=== PATIENT | female | born 1975 | race Caucasian/White ===

== ENCOUNTER 2016-09-26 18:31 | Emergency (ER) | payer BC ==
[~2016-09-26] VITALS: Ht 147.3 cm; Wt 107.9 kg
[~2016-09-26 18:31] MED LIST: AMBIEN10 MG PO; AMITRIPTYLINE150 MG PO; ATIVAN1 MG PO; AUGMENTIN875 MG PO; CELEXA20 MG PO; CELEXA40 MG PO; CLARITIN10 M3 PO; DEPO-PROVER150 MG/ML IM; DILAUDID2 MG PO; ELAVIL100 MG PO; ELAVIL150 MG PO; FIORICET,ESG1 TABLET PO; FLAGYL500 MG PO; HYDROCHLOROTHIA25 MG PO; HYDROCODON-ACE1 EAC7 PO; KEFLEX500 MG PO; KLONOPIN0.5 MG PO; KLONOPIN1 MG PO; LEXAPRO20 MG PO; LIALDA1.2 GM PO; LIPITOR20 MG PO; LISINOPRIL10 MG PO; LISINOPRIL20 MG PO; LOPRESSOR25 MG PO; METFORMIN HCL500 MG PO; METOPROLOL SUCC50 MG PO; MOTRIN800 MG PO; MULTIVITAMIN1 EAC2 PO; NEURONTIN100 MG PO; NEURONTIN300 MG PO; NORCO 5/3251 TABLET PO; NORCO 7.5/321 TABLET PO; PAXIL20 MG PO; PERCOCET 5/31 TABLET PO; PRAVACHOL10 MG PO; PREDNISONE10 MG PO; PRINIVIL20 MG PO; PULMICORT FLE180 MCG IH; ROBAXIN750 MG PO; TESSALON PERLE100 MG PO; TIZANIDINE HCL4 MG PO; TOFRANIL25 MG PO; TOPROL XL50 MG PO; TRAMADOL HCL50 MG PO; TYLENOL WITH C1 EACH PO; TYLENOL/CODE1 TABLET PO; VENTOLIN HFA18 GM IH; XANAX0.5 MG PO; XYZAL5 MG PO; ZANAFLEX4 M1 PO; ZOCOR5 MG PO; ZOFRAN ODT4 MG PO; ZOFRAN ODT8 MG PO; ZOFRAN4 MG PO; ZOLOFT50 M1 PO; ZOLOFT50 MG PO
[2016-09-26 19:15] LABS: HEMATOCRIT 37.8 % (36.0-46.0); MCH 29.2 PG (29.0-34.0); MCHC 33.6 G/DL (30.0-36.0); MCV 86.9 FL (83-99); MEAN PLAT.VOLUME 10.1 uM^3 (9.5-12.4); PLATELET COUNT 202 K/uL (156-360); RBC DIS.WIDTH-CV 13.7 % (11.8-14.6); RBC DIS.WIDTH-SD 41.9 % (39-53); RED BLOOD COUNT 4.35 M/uL (3.80-5.20); WHITE BLOOD COUNT 7.9 K/uL (4.1-10.2)
[2016-09-26 19:24] LABS: CHLORIDE 102 mEq/L (99-109); POTASSIUM 3.7 mEq/L (3.7-5.4); SODIUM 138 mEq/L (136-147)
[2016-09-26 19:26] LABS: GLUCOSE 160 mg/dL (70-99)
[2016-09-26 19:27] LABS: ANION GAP 11 MEQ/L (2-14)
[2016-09-26 19:30] LABS: GFR ESTIMATE (CALCULATED) > 59 mL/min/
[2016-09-26 19:31] LABS: UREA NITROGEN (BUN) 7 mg/dL (9-23)
[2016-09-26 23:00] LABS: EOSINOPHIL (%) 2.1 % (0-5); EOSINOPHIL COUNT 0.2 K/uL (0-0.3); IMMATURE GRANULOCYTE (%) 0.1 % (0.0-0.7); LYMPHOCYTE COUNT 2.9 K/uL (1.0-2.8); MONOCYTE (%) 7.8 % (3-12); MONOCYTE COUNT 0.6 K/uL (0-0.8); NEUTROPHIL (%) 52.1 % (45-76); NEUTROPHIL COUNT 3.9 K/uL (1.8-6.4)
[2016-09-26 23:07] LABS: TOTAL BILIRUBIN 0.4 mg/dL (0.0-1.0)
[2016-09-26 23:09] LABS: ALKALINE PHOSPHATASE 125 IU/L (3-129)
[2016-09-26 23:11] LABS: DIRECT BILIRUBIN 0.2 mg/dL (0.0-0.3)
[2016-09-27] LABS: INTERNAL CONTROL VALID? YES; MONOSPOT (MONONUCLEOSIS SEROL) NEGATIVE
[2016-09-27] MEDS ORDERED: MEDROL DOSEPAK4 MG PO (02:09)
[2016-09-27] MEDS ORDERED: ZITHROMAX500 MG PO (02:09)
[2016-09-27] MEDS ORDERED: PROVENTIL HFA6.7 GM IH (02:09)
[2016-09-27] MEDS ORDERED: TESSALON PERLE100 MG PO (02:09)
[2016-09-27] MEDS ORDERED: ROBITUSSIN AC,T10 ML PO (02:09)
[2016-09-27 02:24] VITALS: BP 169/92
== END 2016-09-27 02:25 | disposition home or self-care (01) ==
LOC: EME 18:31
DX: J06.9 Acute upper respiratory infection, unspecified (principal); J20.9 Acute bronchitis, unspecified; J45.909 Unspecified asthma, uncomplicated; E11.9 Type 2 diabetes mellitus without complications; I10 Essential (primary) hypertension; K21.9 Gastro-esophageal reflux disease without esophagitis; Z87.442 Personal history of urinary calculi
CPT/HCPCS: 71020; 71275; 80048; 80076; 85025; 85027; 86308; 87651 90; 94640; 99281; 99285; J7030; J7512

== ENCOUNTER 2016-10-27 21:11 | Emergency (ER) | payer BC ==
[~2016-10-27] VITALS: Ht 147.3 cm; Wt 105.0 kg
[~2016-10-27 21:11] MED LIST changes: +MEDROL DOSEPAK4 MG PO; +PROVENTIL HFA6.7 GM IH; +ROBITUSSIN AC,T10 ML PO; +ZITHROMAX500 MG PO
[2016-10-27 21:22] VITALS: BP 126/99
[2016-10-27 22:06] LABS: HEMATOCRIT 38.6 % (36.0-46.0); MCH 29.5 PG (29.0-34.0); MCHC 33.7 G/DL (30.0-36.0); MCV 87.5 FL (83-99); MEAN PLAT.VOLUME 10.5 uM^3 (9.5-12.4); PLATELET COUNT 194 K/uL (156-360); RBC DIS.WIDTH-CV 14.8 % (11.8-14.6); RBC DIS.WIDTH-SD 46.8 % (39-53); RED BLOOD COUNT 4.41 M/uL (3.80-5.20); WHITE BLOOD COUNT 5.7 K/uL (4.1-10.2)
[2016-10-27 22:15] LABS: D-DIMER ELISA 0.57 mg/L FEU (< 0.57)
[2016-10-27 22:33] LABS: TROP-I INTERPRETATION NEGATIVE; TROPONIN-I < 0.01 ng/mL (0.0-0.30)
[2016-10-27 22:39] LABS: CHLORIDE 103 mEq/L (99-109); POTASSIUM 3.9 mEq/L (3.7-5.4); SODIUM 136 mEq/L (136-147)
[2016-10-27 22:41] LABS: GLUCOSE 191 mg/dL (70-99)
[2016-10-27 22:42] LABS: ANION GAP 10 MEQ/L (2-14)
[2016-10-27 22:45] LABS: GFR ESTIMATE (CALCULATED) > 59 mL/min/; UREA NITROGEN (BUN) 6 mg/dL (9-23)
[2016-10-28 01:48] LABS: TROP-I INTERPRETATION NEGATIVE; TROPONIN-I 0.02 ng/mL (0.0-0.30)
[2016-10-28] MEDS ORDERED: LEVAQUIN750 MG PO (02:04)
[2016-10-28] MEDS ORDERED: PREDNISONE20 MG PO (02:04)
[2016-10-28] MEDS ORDERED: PROVENTIL HFA6.7 GM IH (02:04)
== END 2016-10-28 02:45 | disposition home or self-care (01) ==
LOC: EME 21:11
PROVIDERS: Emergency Medicine
DX: J20.9 Acute bronchitis, unspecified (principal); R07.9 Chest pain, unspecified; R42 Dizziness and giddiness; R00.0 Tachycardia, unspecified; J45.909 Unspecified asthma, uncomplicated; I10 Essential (primary) hypertension; Z79.52 Long term (current) use of systemic steroids
CPT/HCPCS: 71020; 71275; 80048; 84484; 85027; 85379; 93005; 99281; 99284; J7030

== ENCOUNTER 2017-02-11 12:20 | Emergency (ER) | payer BC ==
[~2017-02-11] VITALS: Ht 147.3 cm; Wt 105.9 kg
[~2017-02-11 12:20] MED LIST changes: +LEVAQUIN750 MG PO; +PREDNISONE20 MG PO
[2017-02-11] MEDS ORDERED: VALIUM5 MG PO (15:07)
[2017-02-11] MEDS ORDERED: INDOCIN25 MG PO (15:07)
[2017-02-11] MEDS ORDERED: ULTRACET1 TABLET PO (15:07)
[2017-02-11 15:26] VITALS: BP 118/98
== END 2017-02-11 15:37 | disposition home or self-care (01) ==
LOC: EME 12:20
DX: S46.811A Strain of other muscles, fascia and tendons at shoulder and upper arm level, right arm, initial encounter (principal); M75.81 Other shoulder lesions, right shoulder; M77.01 Medial epicondylitis, right elbow; X50.9XXA Other and unspecified overexertion or strenuous movements or postures, initial encounter; Y93.89 Activity, other specified; I10 Essential (primary) hypertension; E11.9 Type 2 diabetes mellitus without complications; Z87.442 Personal history of urinary calculi
CPT/HCPCS: 73030; 99281; 99284; J3010

== ENCOUNTER 2017-05-27 14:46 | Emergency (ER) | payer BC ==
[~2017-05-27] VITALS: Ht 149.9 cm; Wt 102.2 kg
[~2017-05-27 14:46] MED LIST changes: +INDOCIN25 MG PO; +ULTRACET1 TABLET PO; +VALIUM5 MG PO
[2017-05-27 16:38] LABS: ADD MIUA? YES; BILIRUBIN NEGATIVE; BLOOD TRACE; COLOR YELLOW ((YELLOW)); GLUCOSE (STRIP) NEGATIVE; KETONES NEGATIVE; LEUKOCYTES NEGATIVE; NITRITE NEGATIVE; PROTEIN (STRIP) NEGATIVE; SPECIFIC GRAVITY 1.019 (1.000-1.030); UROBILINOGEN 0.2 MG/DL (0.2-1.0)
[2017-05-27 16:39] LABS: HEMATOCRIT 37.8 % (36.0-46.0); MCH 30.1 PG (29.0-34.0); MCHC 33.6 G/DL (30.0-36.0); MCV 89.6 FL (83-99); MEAN PLAT.VOLUME 10.5 uM^3 (9.5-12.4); PLATELET COUNT 203 K/uL (156-360); RBC DIS.WIDTH-CV 13.7 % (11.8-14.6); RED BLOOD COUNT 4.22 M/uL (3.80-5.20); WHITE BLOOD COUNT 8.3 K/uL (4.1-10.2)
[2017-05-27 16:39] LABS: EPITHELIAL CELLS 1+ /HPF; MUCUS RARE /LPF; RED BLOOD CELLS 0-5 /HPF (0-5); WHITE BLOOD CELLS 0-5 /HPF (0-5)
[2017-05-27 16:40] LABS: BACTERIA 2+ /HPF
[2017-05-27 16:49] LABS: CHLORIDE 102 mEq/L (99-109); POTASSIUM 3.8 mEq/L (3.7-5.4); SODIUM 139 mEq/L (136-147)
[2017-05-27 16:51] LABS: GLUCOSE 150 mg/dL (70-99)
[2017-05-27 16:53] LABS: ANION GAP 16 MEQ/L (2-14)
[2017-05-27 16:55] LABS: GFR ESTIMATE (CALCULATED) > 59 mL/min/
[2017-05-27 16:56] LABS: UREA NITROGEN (BUN) 8 mg/dL (9-23)
[2017-05-27 17:05] LABS: QUANTITATIVE HCG < 4.0 MIU/ML
[2017-05-27] MEDS ORDERED: ZOFRAN ODT4 MG PO (17:49)
[2017-05-27] MEDS ORDERED: KEFLEX500 MG PO (17:49)
[2017-05-27] MEDS ORDERED: DIFLUCAN150 MG PO (17:59)
[2017-05-27 18:15] VITALS: BP 138/89
== END 2017-05-27 18:17 | disposition home or self-care (01) ==
LOC: EME 14:46
PROVIDERS: Nurse Practitioner Family
DX: N39.0 Urinary tract infection, site not specified (principal); E11.65 Type 2 diabetes mellitus with hyperglycemia; I10 Essential (primary) hypertension; J45.909 Unspecified asthma, uncomplicated; Z87.442 Personal history of urinary calculi; K50.90 Crohn's disease, unspecified, without complications
CPT/HCPCS: 74176; 80048; 81003; 84702; 85027; 99281; 99284; J3010; J7030

== ENCOUNTER 2017-09-09 12:49 | Emergency (ER) | payer BC ==
[~2017-09-09] VITALS: Ht 147.3 cm; Wt 162.7 kg
[~2017-09-09 12:49] MED LIST changes: +DIFLUCAN150 MG PO
[2017-09-09 13:31] LABS: HEMATOCRIT 41.2 % (36.0-46.0); HEMOGLOBIN 13.5 G/DL (11.9-15.5); MCH 29.5 PG (29.0-34.0); MCHC 32.8 G/DL (30.0-36.0); PLATELET COUNT 205 K/uL (156-360); RBC DIS.WIDTH-CV 14.2 % (11.8-14.6); RBC DIS.WIDTH-SD 46.6 % (39-53); RED BLOOD COUNT 4.58 M/uL (3.80-5.20); WHITE BLOOD COUNT 6.5 K/uL (4.1-10.2)
[2017-09-09 13:39] LABS: CHLORIDE 105 mEq/L (99-109); POTASSIUM 3.6 mEq/L (3.7-5.4); SODIUM 136 mEq/L (136-147)
[2017-09-09 13:41] LABS: GLUCOSE 201 mg/dL (70-99)
[2017-09-09 13:45] LABS: CREATININE 0.8 mg/dL (0.6-1.3); GFR ESTIMATE (CALCULATED) > 59 mL/min/
[2017-09-09 13:46] LABS: UREA NITROGEN (BUN) 8 mg/dL (9-23)
[2017-09-09] MEDS ORDERED: ROBITUSSIN AC,T10 ML PO (17:00)
[2017-09-09] MEDS ORDERED: PROVENTIL,2.5 MG/3 M IH (17:00)
[2017-09-09 17:14] VITALS: BP 145/97
== END 2017-09-09 17:15 | disposition home or self-care (01) ==
LOC: EME 12:49
PROVIDERS: Physician Assistant
DX: J20.9 Acute bronchitis, unspecified (principal); J45.909 Unspecified asthma, uncomplicated; E11.9 Type 2 diabetes mellitus without complications; I10 Essential (primary) hypertension; K50.90 Crohn's disease, unspecified, without complications; F43.10 Post-traumatic stress disorder, unspecified; Z88.1 Allergy status to other antibiotic agents; Z88.2 Allergy status to sulfonamides; Z88.8 Allergy status to other drugs, medicaments and biological substances
CPT/HCPCS: 71020; 80048; 82948; 85027; 94640; 99281; 99285; J1100

== ENCOUNTER 2017-10-16 12:08 | Inpatient (IN) | payer BC ==
[~2017-10-16] VITALS: Ht 148.6 cm; Wt 102.3 kg
[~2017-10-16 12:08] MED LIST changes: +PROVENTIL,2.5 MG/3 M IH
[2017-10-16 12:49] LABS: HEMATOCRIT 38.3 % (36.0-46.0); HEMOGLOBIN 12.9 G/DL (11.9-15.5); MCH 30.1 PG (29.0-34.0); MCHC 33.7 G/DL (30.0-36.0); MCV 89.3 FL (83-99); PLATELET COUNT 240 K/uL (156-360); RBC DIS.WIDTH-CV 13.9 % (11.8-14.6); RBC DIS.WIDTH-SD 44.9 % (39-53); RED BLOOD COUNT 4.29 M/uL (3.80-5.20); WHITE BLOOD COUNT 5.6 K/uL (4.1-10.2)
[2017-10-16 12:58] LABS: ALBUMIN 3.5 g/dL (3.2-4.8)
[2017-10-16 12:59] LABS: CHLORIDE 106 mEq/L (99-109); POTASSIUM 4.4 mEq/L (3.7-5.4); SODIUM 139 mEq/L (136-147)
[2017-10-16 13:01] LABS: GLUCOSE 184 mg/dL (70-99); TOTAL PROTEIN 7.3 g/dL (6.4-8.3)
[2017-10-16 13:03] LABS: TOTAL BILIRUBIN 0.5 mg/dL (0.0-1.0)
[2017-10-16 13:05] LABS: ALKALINE PHOSPHATASE 112 IU/L (3-129); CREATININE 0.8 mg/dL (0.6-1.3); GFR ESTIMATE (CALCULATED) > 59 mL/min/
[2017-10-16 13:06] LABS: AST (GOT) 39 IU/L (2-34); UREA NITROGEN (BUN) 8 mg/dL (9-23)
[2017-10-16 13:08] LABS: ALT (GPT) 34 IU/L (3-49); LIPASE 18 U/L (1.0-51.0)
[2017-10-16 13:15] LABS: QUANTITATIVE HCG < 4.0 MIU/ML
[2017-10-16 14:41] LABS: TROP-I INTERPRETATION NEGATIVE; TROPONIN-I < 0.01 ng/mL (0.0-0.30)
[2017-10-16 15:01] LABS: APPEARANCE CLOUDY ((CLEAR)); BILIRUBIN NEGATIVE; BLOOD NEGATIVE; COLOR YELLOW ((YELLOW)); GLUCOSE (STRIP) NEGATIVE; KETONES NEGATIVE; LEUKOCYTES NEGATIVE; NITRITE NEGATIVE; PROTEIN (STRIP) NEGATIVE; SPECIFIC GRAVITY 1.018 (1.000-1.030); UROBILINOGEN 0.2 MG/DL (0.2-1.0)
[2017-10-16 15:19] LABS: BACTERIA RARE /HPF; CALCIUM OXALATE CRYSTALS 2+ /HPF; EPITHELIAL CELLS 4+ /HPF; MUCUS 3+ /LPF; RED BLOOD CELLS 0-5 /HPF (0-5); UCUL ADDED? NO; WHITE BLOOD CELLS 0-5 /HPF (0-5)
[2017-10-16] MEDS ORDERED: NEURONTIN100 MG PO (17:47)
[2017-10-16] MEDS ORDERED: SINGULAIR10 MG PO (17:47)
[2017-10-16] MEDS ORDERED: COREG6.25 M1 PO (17:48)
[2017-10-16] MEDS ORDERED: LEVEMIR100 UNIT/2 SC (17:49)
[2017-10-16] MEDS ORDERED: PROAIR HFA8.5 GM IH (17:52)
[2017-10-16] MEDS ORDERED: ZESTRIL2.5 MG PO (17:53)
[2017-10-16] MEDS ORDERED: FLUOXETINE HCL20 MG PO (17:53)
[2017-10-16 22:58] VITALS: BP 122/79
[2017-10-17 04:36] VITALS: BP 120/74
[2017-10-17 07:05] VITALS: BP 129/62
[2017-10-17 07:07] LABS: CHLORIDE 107 MEQ/L (99-109); CREATININE 0.8 MG/DL (0.6-1.3); GFR ESTIMATE (CALCULATED) > 59 mL/min/; GLUCOSE 120 mg/dL (70-99); POTASSIUM 4.3 MEQ/L (3.7-5.4); SODIUM 139 MEQ/L (136-147); UREA NITROGEN (BUN) 7 mg/dL (9-23)
[2017-10-17 07:18] LABS: HEMATOCRIT 36.4 % (36.0-46.0); HEMOGLOBIN 11.9 G/DL (11.9-15.5); MCH 29.5 PG (29.0-34.0); MCHC 32.7 G/DL (30.0-36.0); MCV 90.3 FL (83-99); NRBC (%) 0.6 /100 WBC (0-0); RBC DIS.WIDTH-CV 14.1 % (11.8-14.6); RED BLOOD COUNT 4.03 M/uL (3.80-5.20); WHITE BLOOD COUNT 5.3 K/uL (4.1-10.2)
[2017-10-17 07:42] LABS: PLAT.SUFFICIENCY ADEQUATE; PLATELET COUNT 193 K/uL (156-360)
[2017-10-17 11:20] VITALS: BP 119/77
[2017-10-17 12:07] LABS: TROP-I INTERPRETATION NEGATIVE; TROPONIN-I < 0.01 ng/mL (0.0-0.30)
[2017-10-17 16:30] VITALS: BP 120/68
[2017-10-17 19:22] VITALS: BP 121/75
[2017-10-17 23:28] VITALS: BP 120/67
[2017-10-18 03:37] VITALS: BP 124/65
[2017-10-18 07:18] VITALS: BP 117/71
[2017-10-18] MEDS ORDERED: ENDOCET 5-3251 EACH PO (09:45)
[2017-10-18] MEDS ORDERED: ELIQUIS5 MG PO ×2 (10:11→10:13)
[2017-10-18 12:15] VITALS: BP 117/71
[2017-10-23 10:38] LABS: ACTIVATED PROTEIN C RESIST+ 4.7 ratio (>=2.1); DRVVT Mixing Study Interp Not Indicated (()); FACTOR VIII ACTIVITY+ 230 % (50-180); PROTEIN C FUNCTIONAL ACTIVITY+ 142 % (70-180); PTT-LA 37 sec (<=40); Protein S, Free 149 % normal (50-147); Thrombosis Consult Level Limited (()); dRVVT Screen 43 sec (<=45)
[2017-10-23 16:16] LABS: ANTITHROMBIN III ACTIVITY+ 80 % activi (80-120)
== END 2017-10-18 14:55 | disposition home or self-care (01) | DRG 176 ==
LOC: EME 12:08 → EDOF 19:44 → 2EAST 19:44 → ENRESERV 19:46 → 2EAST 21:29 → ENPENDDIS 10-18 → 2EAST 10-18 14:55
PROVIDERS: Hospitalist; Internal Medicine; Physician Assistant
DX: I26.99 Other pulmonary embolism without acute cor pulmonale (principal); E11.65 Type 2 diabetes mellitus with hyperglycemia; K50.90 Crohn's disease, unspecified, without complications; K76.89 Other specified diseases of liver; G89.29 Other chronic pain; I10 Essential (primary) hypertension; J45.909 Unspecified asthma, uncomplicated; K21.9 Gastro-esophageal reflux disease without esophagitis; E66.01 Morbid (severe) obesity due to excess calories; Z68.42 Body mass index [BMI] 45.0-49.9, adult; G43.909 Migraine, unspecified, not intractable, without status migrainosus; E78.5 Hyperlipidemia, unspecified; N80.9 Endometriosis, unspecified; F32.9 Major depressive disorder, single episode, unspecified; F43.10 Post-traumatic stress disorder, unspecified; Z80.1 Family history of malignant neoplasm of trachea, bronchus and lung; Z82.49 Family history of ischemic heart disease and other diseases of the circulatory system; Z87.891 Personal history of nicotine dependence
CPT/HCPCS: 71275; 74177; 80048; 80053; 81003; 81240 90; 82565; 82948; 83090 90; 83690; 84484; 84520; 84702; 85027; 85240 90; 85300 90; 85303 90; 85305 90; 85306 90; 85307 90; 85379; 85613 90; 85730 90; 86146 90; 86147 90; 93005; 93970; 94640; 99202; 99281; 99285; J1650; J2270; J2405; J3010; J7030

== ENCOUNTER 2017-10-21 10:24 | Emergency (ER) | payer BC ==
[~2017-10-21] VITALS: Ht 147.3 cm; Wt 101.0 kg
[~2017-10-21 10:24] MED LIST changes: +COREG6.25 M1 PO; +ELIQUIS5 MG PO; +ENDOCET 5-3251 EACH PO; +FLUOXETINE HCL20 MG PO; +LEVEMIR100 UNIT/2 SC; +PROAIR HFA8.5 GM IH; +SINGULAIR10 MG PO; +ZESTRIL2.5 MG PO
[2017-10-21 11:08] LABS: HEMATOCRIT 41.4 % (36.0-46.0); HEMOGLOBIN 13.8 G/DL (11.9-15.5); MCH 29.7 PG (29.0-34.0); MCHC 33.3 G/DL (30.0-36.0); MCV 89.2 FL (83-99); PLATELET COUNT 218 K/uL (156-360); RBC DIS.WIDTH-CV 13.9 % (11.8-14.6); RBC DIS.WIDTH-SD 45.1 % (39-53); RED BLOOD COUNT 4.64 M/uL (3.80-5.20); WHITE BLOOD COUNT 6.2 K/uL (4.1-10.2)
[2017-10-21 11:19] LABS: CHLORIDE 103 mEq/L (99-109); POTASSIUM 4.1 mEq/L (3.7-5.4); SODIUM 136 mEq/L (136-147)
[2017-10-21 11:21] LABS: GLUCOSE 191 mg/dL (70-99)
[2017-10-21 11:25] LABS: CREATININE 0.9 mg/dL (0.6-1.3); GFR ESTIMATE (CALCULATED) > 59 mL/min/
[2017-10-21 11:26] LABS: UREA NITROGEN (BUN) 6 mg/dL (9-23)
[2017-10-21 11:29] LABS: TROP-I INTERPRETATION NEGATIVE; TROPONIN-I < 0.01 ng/mL (0.0-0.30)
[2017-10-21] MEDS ORDERED: PERCOCET 5/31 TABLET PO (13:17)
[2017-10-21] MEDS ORDERED: TYLENOL WITH C1 EACH PO (13:33)
[2017-10-21 14:14] VITALS: BP 149/97
== END 2017-10-21 14:24 | disposition home or self-care (01) ==
LOC: EME 10:24
DX: I26.99 Other pulmonary embolism without acute cor pulmonale (principal); J45.909 Unspecified asthma, uncomplicated; K50.90 Crohn's disease, unspecified, without complications; I10 Essential (primary) hypertension; E11.9 Type 2 diabetes mellitus without complications; Z87.442 Personal history of urinary calculi; Z90.49 Acquired absence of other specified parts of digestive tract; Z87.891 Personal history of nicotine dependence; Z88.1 Allergy status to other antibiotic agents; Z88.2 Allergy status to sulfonamides; Z88.8 Allergy status to other drugs, medicaments and biological substances
CPT/HCPCS: 71046; 71275; 80048; 84484; 85027; 93005; 99281; 99285; J2270; J2405

== ENCOUNTER 2017-10-24 15:33 | Emergency (ER) | payer BC ==
[~2017-10-24] VITALS: Ht 147.3 cm; Wt 101.8 kg
[2017-10-24 19:14] LABS: BASOPHIL (%) 0.4 % (0-1); EOSINOPHIL (%) 1.5 % (0-5); EOSINOPHIL COUNT 0.1 K/uL (0-0.3); HEMATOCRIT 39.4 % (36.0-46.0); HEMOGLOBIN 13.2 G/DL (11.9-15.5); IMMATURE GRANULOCYTE (%) 0.3 % (0.0-0.7); LYMPHOCYTE (%) 29.5 % (15-42); LYMPHOCYTE COUNT 2.8 K/uL (1.0-2.8); MCH 29.5 PG (29.0-34.0); MCHC 33.5 G/DL (30.0-36.0); MCV 88.1 FL (83-99); MONOCYTE (%) 6.8 % (3-12); MONOCYTE COUNT 0.6 K/uL (0-0.8); NEUTROPHIL (%) 61.5 % (45-76); NEUTROPHIL COUNT 5.8 K/uL (1.8-6.4); PLATELET COUNT 223 K/uL (156-360); RBC DIS.WIDTH-CV 13.7 % (11.8-14.6); RBC DIS.WIDTH-SD 43.8 % (39-53); RED BLOOD COUNT 4.47 M/uL (3.80-5.20); WHITE BLOOD COUNT 9.5 K/uL (4.1-10.2)
[2017-10-24 19:33] LABS: CHLORIDE 99 MEQ/L (99-109); POTASSIUM 3.8 MEQ/L (3.7-5.4); SODIUM 133 MEQ/L (136-147)
[2017-10-24 19:34] LABS: TROP-I INTERPRETATION NEGATIVE; TROPONIN-I 0.01 ng/mL (0.0-0.30)
[2017-10-24 19:39] LABS: CREATININE 0.7 MG/DL (0.6-1.3); GFR ESTIMATE (CALCULATED) > 59 mL/min/; GLUCOSE 105 mg/dL (70-99); UREA NITROGEN (BUN) 10 mg/dL (9-23)
[2017-10-24] MEDS ORDERED: ULTRAM50 MG PO (20:24)
[2017-10-24] MEDS ORDERED: FLEXERIL10 MG PO (20:24)
[2017-10-24 20:46] VITALS: BP 131/88
== END 2017-10-24 20:47 | disposition home or self-care (01) ==
LOC: EME 15:33
PROVIDERS: Emergency Medicine
DX: R07.9 Chest pain, unspecified (principal); I26.99 Other pulmonary embolism without acute cor pulmonale; E11.9 Type 2 diabetes mellitus without complications; I10 Essential (primary) hypertension; J45.909 Unspecified asthma, uncomplicated; K50.90 Crohn's disease, unspecified, without complications; Z86.711 Personal history of pulmonary embolism; Z87.442 Personal history of urinary calculi; F43.10 Post-traumatic stress disorder, unspecified; Z87.891 Personal history of nicotine dependence; Z88.1 Allergy status to other antibiotic agents; Z88.2 Allergy status to sulfonamides; Z88.8 Allergy status to other drugs, medicaments and biological substances
CPT/HCPCS: 80048; 84484; 85025; 93005; 99281; 99285; J2270; J7030

== ENCOUNTER 2017-12-12 09:03 | Emergency (ER) | payer BC ==
[~2017-12-12] VITALS: Ht 149.9 cm; Wt 95.6 kg
[~2017-12-12 09:03] MED LIST changes: +FLEXERIL10 MG PO; +ULTRAM50 MG PO
[2017-12-12 10:19] LABS: HEMATOCRIT 40.4 % (36.0-46.0); HEMOGLOBIN 13.8 G/DL (11.9-15.5); MCH 29.7 PG (29.0-34.0); MCHC 34.2 G/DL (30.0-36.0); MCV 87.1 FL (83-99); PLATELET COUNT 203 K/uL (156-360); RBC DIS.WIDTH-CV 13.8 % (11.8-14.6); RBC DIS.WIDTH-SD 44.2 % (39-53); RED BLOOD COUNT 4.64 M/uL (3.80-5.20); WHITE BLOOD COUNT 6.3 K/uL (4.1-10.2)
[2017-12-12 10:25] LABS: INTER. NORMALIZED RATIO 1.4
[2017-12-12 10:28] LABS: PTT 32.4 SEC (25-37)
[2017-12-12 10:30] LABS: CHLORIDE 107 mEq/L (99-109); POTASSIUM 3.4 mEq/L (3.7-5.4); SODIUM 139 mEq/L (136-147)
[2017-12-12 10:31] LABS: GLUCOSE 138 mg/dL (70-99)
[2017-12-12 10:35] LABS: CREATININE 0.9 mg/dL (0.6-1.3); GFR ESTIMATE (CALCULATED) > 59 mL/min/
[2017-12-12 10:36] LABS: UREA NITROGEN (BUN) 10 mg/dL (9-23)
[2017-12-12 10:44] LABS: QUANTITATIVE HCG < 4.0 MIU/ML
[2017-12-12 10:45] LABS: TROP-I INTERPRETATION NEGATIVE; TROPONIN-I < 0.01 ng/mL (0.0-0.30)
[2017-12-12 13:37] LABS: TROP-I INTERPRETATION NEGATIVE; TROPONIN-I < 0.01 ng/mL (0.0-0.30)
[2017-12-12 15:00] VITALS: BP 138/83
== END 2017-12-12 15:16 | disposition home or self-care (01) ==
LOC: EME 09:03
PROVIDERS: Family Medicine
DX: I26.99 Other pulmonary embolism without acute cor pulmonale (principal); J45.909 Unspecified asthma, uncomplicated; Z86.711 Personal history of pulmonary embolism; I10 Essential (primary) hypertension; E11.9 Type 2 diabetes mellitus without complications; K50.90 Crohn's disease, unspecified, without complications; Z90.49 Acquired absence of other specified parts of digestive tract; Z87.442 Personal history of urinary calculi; Z87.891 Personal history of nicotine dependence; Z88.1 Allergy status to other antibiotic agents; Z88.2 Allergy status to sulfonamides; Z88.8 Allergy status to other drugs, medicaments and biological substances
CPT/HCPCS: 71046; 80048; 84484; 84702; 85027; 85379; 85610; 85730; 93005; 99281; 99284; J1200; J2405; J7040

== ENCOUNTER 2018-01-03 10:11 | Emergency (ER) | payer BC ==
[~2018-01-03] VITALS: Ht 147.3 cm; Wt 97.0 kg
[2018-01-03 11:08] LABS: HEMATOCRIT 39.8 % (36.0-46.0); HEMOGLOBIN 13.7 G/DL (11.9-15.5); MCH 29.5 PG (29.0-34.0); MCHC 34.4 G/DL (30.0-36.0); MCV 85.8 FL (83-99); PLATELET COUNT 220 K/uL (156-360); RBC DIS.WIDTH-CV 13.2 % (11.8-14.6); RED BLOOD COUNT 4.64 M/uL (3.80-5.20); WHITE BLOOD COUNT 8.4 K/uL (4.1-10.2)
[2018-01-03 11:23] LABS: CHLORIDE 104 mEq/L (99-109); POTASSIUM 3.7 mEq/L (3.7-5.4); SODIUM 137 mEq/L (136-147)
[2018-01-03 11:24] LABS: GLUCOSE 182 mg/dL (70-99)
[2018-01-03 11:28] LABS: CREATININE 0.8 mg/dL (0.6-1.3); GFR ESTIMATE (CALCULATED) > 59 mL/min/
[2018-01-03 11:29] LABS: UREA NITROGEN (BUN) 11 mg/dL (9-23)
[2018-01-03 11:37] LABS: QUANTITATIVE HCG < 4.0 MIU/ML
[2018-01-03 12:27] LABS: APPEARANCE CLOUDY ((CLEAR)); COLOR YELLOW ((YELLOW)); LEUKOCYTES MODERATE; NITRITE NEGATIVE
[2018-01-03 12:28] LABS: BILIRUBIN NEGATIVE; BLOOD LARGE; GLUCOSE (STRIP) NEGATIVE; KETONES NEGATIVE; PH, URINE 6.5 (5-8); PROTEIN (STRIP) TRACE; UROBILINOGEN 0.2 MG/DL (0.2-1.0)
[2018-01-03 12:49] LABS: EPITHELIAL CELLS 1+ /HPF
[2018-01-03 12:51] LABS: UCUL ADDED? YES
[2018-01-03 12:54] LABS: MUCUS RARE /LPF
[2018-01-03 12:57] LABS: BACTERIA 1+ /HPF
[2018-01-03 14:09] LABS: ALBUMIN 3.8 G/DL (3.2-4.8); DIRECT BILIRUBIN 0.1 mg/dL (0.0-0.3); TOTAL BILIRUBIN 0.6 MG/DL (0.0-1.0)
[2018-01-03 14:15] LABS: ALKALINE PHOSPHATASE 95 IU/L (3-129); ALT (GPT) 23 IU/L (3-49); AST (GOT) 25 IU/L (2-34); TOTAL PROTEIN 7.5 G/DL (6.4-8.3)
[2018-01-03] MEDS ORDERED: KEFLEX500 MG PO (15:27)
[2018-01-03 15:50] VITALS: BP 135/80
== END 2018-01-03 16:10 | disposition home or self-care (01) ==
LOC: EME 10:11
DX: N39.0 Urinary tract infection, site not specified (principal); N20.0 Calculus of kidney; I10 Essential (primary) hypertension; J45.909 Unspecified asthma, uncomplicated; E11.9 Type 2 diabetes mellitus without complications; Z79.4 Long term (current) use of insulin; Z86.711 Personal history of pulmonary embolism; Z79.01 Long term (current) use of anticoagulants; Z88.1 Allergy status to other antibiotic agents; Z88.2 Allergy status to sulfonamides; Z87.442 Personal history of urinary calculi; Z90.49 Acquired absence of other specified parts of digestive tract; Z87.891 Personal history of nicotine dependence
CPT/HCPCS: 74176; 80048; 80076; 81003; 84702; 85027; 87077; 87086; 87186; 99281; 99284; J2405; J3010; J7030

== ENCOUNTER 2018-01-29 11:50 | Emergency (ER) | payer SELFPAY ==
[~2018-01-29] VITALS: Ht 147.3 cm; Wt 97.4 kg
[2018-01-29 13:40] LABS: HEMATOCRIT 42.1 % (36.0-46.0); HEMOGLOBIN 14.4 G/DL (11.9-15.5); MCHC 34.2 G/DL (30.0-36.0); MCV 84.7 FL (83-99); PLATELET COUNT 232 K/uL (156-360); RBC DIS.WIDTH-CV 13.5 % (11.8-14.6); RBC DIS.WIDTH-SD 41.3 % (39-53); RED BLOOD COUNT 4.97 M/uL (3.80-5.20)
[2018-01-29 13:44] LABS: APPEARANCE SL.HAZY ((CLEAR)); BILIRUBIN NEGATIVE; BLOOD MODERATE; COLOR YELLOW ((YELLOW)); GLUCOSE (STRIP) 150; KETONES NEGATIVE; LEUKOCYTES MODERATE; NITRITE NEGATIVE; PROTEIN (STRIP) NEGATIVE; UROBILINOGEN 0.2 MG/DL (0.2-1.0)
[2018-01-29 13:46] LABS: PTT 27.4 SEC (25-37)
[2018-01-29 13:50] LABS: ALBUMIN 3.8 g/dL (3.2-4.8); CHLORIDE 103 mEq/L (99-109); POTASSIUM 4.2 mEq/L (3.7-5.4); SODIUM 136 mEq/L (136-147)
[2018-01-29 13:52] LABS: GLUCOSE 245 mg/dL (70-99); TOTAL PROTEIN 8.2 g/dL (6.4-8.3)
[2018-01-29 13:54] LABS: TOTAL BILIRUBIN 0.7 mg/dL (0.0-1.0)
[2018-01-29 13:56] LABS: ALKALINE PHOSPHATASE 138 IU/L (3-129); CREATININE 0.9 mg/dL (0.6-1.3); GFR ESTIMATE (CALCULATED) > 59 mL/min/
[2018-01-29 13:57] LABS: UREA NITROGEN (BUN) 12 mg/dL (9-23)
[2018-01-29 13:58] LABS: AST (GOT) 27 IU/L (2-34)
[2018-01-29 13:59] LABS: ALT (GPT) 29 IU/L (3-49)
[2018-01-29 14:00] LABS: RED BLOOD CELLS 0-5 /HPF (0-5)
[2018-01-29 14:01] LABS: BACTERIA 1+ /HPF; EPITHELIAL CELLS 2+ /HPF; MUCUS RARE /LPF; UCUL ADDED? YES; WHITE BLOOD CELLS 40-50 /HPF (0-5)
[2018-01-29 14:05] LABS: QUANTITATIVE HCG < 4.0 MIU/ML
[2018-01-29] MEDS ORDERED: KEFLEX500 MG PO (15:30)
[2018-01-29] MEDS ORDERED: PYRIDIUM100 MG PO (15:35)
[2018-01-29 15:37] VITALS: BP 128/91
== END 2018-01-29 15:43 | disposition home or self-care (01) ==
LOC: EME 11:50
PROVIDERS: Physician Assistant
DX: N39.0 Urinary tract infection, site not specified (principal); R10.32 Left lower quadrant pain; K50.90 Crohn's disease, unspecified, without complications; K76.0 Fatty (change of) liver, not elsewhere classified; J45.909 Unspecified asthma, uncomplicated; I10 Essential (primary) hypertension; E11.9 Type 2 diabetes mellitus without complications; Z79.4 Long term (current) use of insulin; Z87.442 Personal history of urinary calculi; Z90.49 Acquired absence of other specified parts of digestive tract; Z86.711 Personal history of pulmonary embolism; Z88.1 Allergy status to other antibiotic agents; Z88.2 Allergy status to sulfonamides; Z87.891 Personal history of nicotine dependence
CPT/HCPCS: 74177; 80053; 81003; 84702; 85027; 85610; 85730; 87077; 87086; 87186; 99281; 99284; J3010; J7030

== ENCOUNTER 2018-05-03 16:32 | Emergency (ER) | payer OTHER ==
[~2018-05-03] VITALS: Ht 147.3 cm; Wt 101.7 kg
[~2018-05-03 16:32] MED LIST changes: +PYRIDIUM100 MG PO
[2018-05-03] MEDS ORDERED: MOTRIN800 MG PO (19:42)
[2018-05-03 20:05] VITALS: BP 135/92
== END 2018-05-03 20:06 | disposition home or self-care (01) ==
LOC: EME 16:32
DX: S06.0X0A Concussion without loss of consciousness, initial encounter (principal); S00.83XA Contusion of other part of head, initial encounter; W50.0XXA Accidental hit or strike by another person, initial encounter; Y92.810 Car as the place of occurrence of the external cause; Z86.718 Personal history of other venous thrombosis and embolism; Z79.01 Long term (current) use of anticoagulants; Z88.2 Allergy status to sulfonamides; Z88.1 Allergy status to other antibiotic agents; Z88.8 Allergy status to other drugs, medicaments and biological substances
CPT/HCPCS: 70450; 70486; 72125; 99281; 99284